=== PATIENT | male | born 1985 | race Two or more races ===

== ENCOUNTER 2017-02-24 08:56 | Emergency (ER) | payer MEDICAID ==
[~2017-02-24] VITALS: Ht 170.2 cm; Wt 72.6 kg
[2017-02-24 09:15] VITALS: BP 168/67
[2017-02-24] MEDS ORDERED: ALPRAZolam 0.25 MG TAB PO ONE (10:15)
== END 2017-02-24 10:21 | disposition home or self-care (01) ==
LOC: ER 08:56
DX: F41.9 Anxiety disorder, unspecified (principal); F17.210 Nicotine dependence, cigarettes, uncomplicated; F12.10 Cannabis abuse, uncomplicated; F11.10 Opioid abuse, uncomplicated

== ENCOUNTER 2018-01-22 10:21 | Emergency (ER) | payer MEDICAID ==
[~2018-01-22] VITALS: Ht 170.2 cm; Wt 81.6 kg
[2018-01-22 10:34] VITALS: BP 124/79
== END 2018-01-22 11:00 | disposition home or self-care (01) ==
LOC: ER 10:21
DX: F41.9 Anxiety disorder, unspecified (principal); Z76.0 Encounter for issue of repeat prescription

== ENCOUNTER 2020-07-08 20:39 | Emergency (ER) | payer MEDICAID ==
[~2020-07-08] VITALS: Ht 170.2 cm; Wt 81.6 kg
[2020-07-08 20:50] VITALS: BP 143/95
[2020-07-08] MEDS ORDERED: HYDROcodone-ACET 10/325MG TAB PO ONE (21:45)
== END 2020-07-08 22:47 | disposition home or self-care (01) ==
LOC: ER 20:40
DX: S83.422A Sprain of lateral collateral ligament of left knee, initial encounter (principal); X58.XXXA Exposure to other specified factors, initial encounter; Y93.89 Activity, other specified; Y92.89 Other specified places as the place of occurrence of the external cause; Y99.8 Other external cause status
CPT/HCPCS: 73562

== ENCOUNTER 2021-01-04 16:25 | Emergency (ER) | payer MEDICAID ==
[~2021-01-04] VITALS: Ht 170.2 cm; Wt 86.2 kg
[2021-01-04] MEDS ORDERED: cefTRIAXone SOD 1,000 MG VL IM ONE (17:30)
[2021-01-04 17:31] VITALS: BP 152/85
== END 2021-01-04 18:07 | disposition home or self-care (01) ==
LOC: ER 16:25
DX: S61.431A Puncture wound without foreign body of right hand, initial encounter (principal); L08.9 Local infection of the skin and subcutaneous tissue, unspecified; F11.20 Opioid dependence, uncomplicated; F12.10 Cannabis abuse, uncomplicated; F17.210 Nicotine dependence, cigarettes, uncomplicated; W22.8XXA Striking against or struck by other objects, initial encounter; Y93.89 Activity, other specified; Y92.89 Other specified places as the place of occurrence of the external cause; Y99.8 Other external cause status
CPT/HCPCS: 96372; 99283; J0696

== ENCOUNTER 2021-03-20 21:50 | Emergency (ER) | payer MEDICAID ==
[~2021-03-20] VITALS: Ht 170.2 cm; Wt 81.6 kg
[2021-03-20 21:53] VITALS: BP 159/92
== END 2021-03-21 02:45 | disposition left against medical advice (07) ==
LOC: ER 21:55
DX: M79.631 Pain in right forearm (principal); Z53.21 Procedure and treatment not carried out due to patient leaving prior to being seen by health care provider

== ENCOUNTER 2021-12-16 05:03 | Emergency (ER) | payer MEDICAID ==
[~2021-12-16] VITALS: Ht 170.2 cm; Wt 81.6 kg
[2021-12-16 05:04] VITALS: BP 141/104
== END 2021-12-16 07:39 | disposition left against medical advice (07) ==
LOC: ER 05:03
DX: M79.643 Pain in unspecified hand (principal); Z53.21 Procedure and treatment not carried out due to patient leaving prior to being seen by health care provider

== ENCOUNTER 2022-07-15 20:19 | Emergency (ER) | payer MEDICAID ==
[~2022-07-15] VITALS: Ht 170.2 cm; Wt 92.6 kg
[2022-07-15 20:25] VITALS: BP 151/94
== END 2022-07-15 21:17 | disposition left against medical advice (07) ==
LOC: ER 20:20
DX: R07.9 Chest pain, unspecified (principal); R20.2 Paresthesia of skin; Z53.21 Procedure and treatment not carried out due to patient leaving prior to being seen by health care provider
CPT/HCPCS: 93005

== ENCOUNTER 2022-10-17 00:57 | Emergency (ER) | payer MEDICAID ==
[~2022-10-17] VITALS: Ht 170.2 cm; Wt 92.3 kg
[2022-10-17 01:20] VITALS: BP 155/88
== END 2022-10-17 06:15 | disposition left against medical advice (07) ==
LOC: ER 00:57
DX: T24.101A Burn of first degree of unspecified site of right lower limb, except ankle and foot, initial encounter (principal); Z53.21 Procedure and treatment not carried out due to patient leaving prior to being seen by health care provider; W29.2XXA Contact with other powered household machinery, initial encounter; Y93.89 Activity, other specified; Y92.89 Other specified places as the place of occurrence of the external cause; Y99.8 Other external cause status

== ENCOUNTER 2023-05-21 22:18 | Emergency (ER) | payer MEDICAID | END 2023-05-21 23:49 | disposition left against medical advice (07) | LOC: ER 22:18 | DX: R10.9 Unspecified abdominal pain (principal); Z53.21 Procedure and treatment not carried out due to patient leaving prior to being seen by health care provider ==